=== PATIENT | female | born 1990 | race Caucasian/White ===

== ENCOUNTER 2016-09-16 22:06 | Emergency (ER) | payer OTHER ==
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
--- NOTE | 2016-09-17 00:18 | ED ORDER SUMMARY ---
..... Patient: CHUCK EAGLE OrderSheet [facility] VisitID: [id number] [place] [address] 26y, F Registration Date/Time: 09/16/2016 ORDER SHEET Weight: 45.3 kg (stated) Allergies: No Known Drug Allergy GENERAL ORDERS: Cervical Spine 2 or 3V Urgent (22:09/16/2016 Deja OWENS) (Ack 22:31 Jose) (22:57 JRomanlewis R.N.) Thoracic Spine 3V Urgent (22:09/16/2016 Deja OWENS) (Ack 22:31 Jose) (0:05 RFay) CT Abd/Pel wo Cont Urgent (:09/16/2016 Deja OWENS) (Ack 22:31 Jose) (0:05 RFay) Chest 2V Urgent (:09/16/2016 Deja OWENS) (Ack 22:31 Jose) (0:05 RFay) CBC w Diff Urgent (22:09/16/2016 Deja OWENS) (Ack 22:31 Jose) (Cancelled: Unable to Collect1:36 JRomanelli R.N.) CMP Urgent (22:09/16/2016 Deja OWENS) (Ack 22:31 Jose) (Cancelled: Unable to Collect1:36 JRomanelli R.N.) Amylase Urgent (22:09/16/2016 Deja OWENS) (Ack 22:31 Jose) (Cancelled: Unable to Collect1:36 JRomanelli R.N.) Lipase Urgent (22:09/16/2016 Deja OWENS) (Ack 22:31 Jose) (1:36 JRomanelli R.N.) (Cancelled: Unable to Collect1:36 JRomanelli R.N.) Urine Urgent (22:09/16/2016 Deja OWENS) (Ack 22:31 Jose) (22:57 Alden R.N.) Urine Drug Screen Urgent (22:09/16/2016 Deja OWENS) (Ack 22:31 Jose) (22:57 omanlewis R.N.) UA-Culture if indicated Urgent (22:09/16/2016 Deja OWENS) (Ack 22:31 Jose) (22:57 omanlewis R.N.) PT with INR Urgent (22:09/16/2016 Deja OWENS) (Ack 22:31 Jose) (1:36 JRomanelli R.N.) (Cancelled: Unable to Collect1:36 JRomanelli R.N.) PTT Urgent (22:09/16/2016 Deja OWENS) (Ack 22:31 Jose) (Cancelled: Unable to Collect1:36 JRomanelli R.N.) MEDICATION ORDERS: IV FLUIDS: ORDER SHEET NOTES: [Electronically signed by Christopher Johnston R.N. (01:37 09/17/2016)] [Electronically signed by Jaycob Roberto MD (08:11 09/28/2016)] [Electronically locked/signed by Christopher Johnston R.N. (:37 09/17/2016)]
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
--- NOTE | 2016-09-17 00:18 | ED ORDER SUMMARY ---
..... Patient: CHUCK EAGLE OrderSheet [facility] VisitID: [id number] [place] [address] 26y, F Registration Date/Time: 09/16/2016 ORDER SHEET Weight: 45.3 kg (stated) Allergies: No Known Drug Allergy GENERAL ORDERS: Cervical Spine 2 or 3V Urgent (22:09/16/2016 Deja OWENS) (Ack 22:31 Jose) (22:57 JRomanlewis R.N.) Thoracic Spine 3V Urgent (22:09/16/2016 Deja OWENS) (Ack 22:31 Jose) (0:05 RFay) CT Abd/Pel wo Cont Urgent (:09/16/2016 Deja OWENS) (Ack 22:31 Jose) (0:05 RFay) Chest 2V Urgent (:09/16/2016 Deja OWENS) (Ack 22:31 Jose) (0:05 RFay) CBC w Diff Urgent (22:09/16/2016 Deja OWENS) (Ack 22:31 Jose) (Cancelled: Unable to Collect1:36 JRomanelli R.N.) CMP Urgent (22:09/16/2016 Deja OWENS) (Ack 22:31 Jose) (Cancelled: Unable to Collect1:36 JRomanelli R.N.) Amylase Urgent (22:09/16/2016 Deja OWENS) (Ack 22:31 Jose) (Cancelled: Unable to Collect1:36 JRomanelli R.N.) Lipase Urgent (22:09/16/2016 Deja OWENS) (Ack 22:31 oJse) (1:36 JRomanelli R.N.) (Cancelled: Unable to Collect1:36 JRomanelli R.N.) Urine Urgent (22:09/16/2016 Deja OWENS) (Ack 22:31 Jose) (22:57 Alden R.N.) Urine Drug Screen Urgent (22:09/16/2016 Deja OWENS) (Ack 22:31 Jose) (22:57 omanlewis R.N.) UA-Culture if indicated Urgent (22:09/16/2016 Deja OWENS) (Ack 22:31 Jose) (22:57 omanlewis R.N.) PT with INR Urgent (22:09/16/2016 Deja OWENS) (Ack 22:31 Jose) (1:36 JRomanelli R.N.) (Cancelled: Unable to Collect1:36 JRomanelli R.N.) PTT Urgent (22:09/16/2016 Deja OWENS) (Ack 22:31 Jose) (Cancelled: Unable to Collect1:36 JRomanelli R.N.) MEDICATION ORDERS: IV FLUIDS: ORDER SHEET NOTES: [Electronically signed by Christopher Johnston R.N. (01:37 09/17/2016)] [Electronically signed by Jaycob Roberto MD (08:11 09/28/2016)] [Electronically locked/signed by Christopher Johnston R.N. (:37 09/17/2016)]
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
--- NOTE | 2016-09-28 08:12 | ED MAR SUMMARY ---
..... Medication Administration Record [facility] [address] [place], [place] [id number] Patient: CHUCK EAGLE Visit ID: [id number] 26y, F Weight: 45.3 kg Height/Length: 61 in BMI: 18.9 ALLERGIES: No Known Drug Allergy
--- NOTE | 2016-09-28 08:12 | ED MED RECONCILIATION SUMMARY ---
Patient: CHUCK EAGLE Medication Reconciliation Report [facility] VisitID: [id number] [place] [address] 26y, F Registration Date/Time: 09/16/2016 Weight: 45.3 kg Height/Length: 61 in. BMI: 18.9 ALLERGIES: No Known Drug Allergy The patient's Home Medications are listed below: NONE. The source(s) of the original Home Medication information: patient The following Medications were given to the patient in the Emergency Department: None. The following Medications were prescribed to the patient: Acetaminophen (available over the counter): take according to label instructions. -- Jaycob Roberto MD Septra DS 800 mg / 160 mg: take 1 tablet orally every 12 hours for 7 days. Dispense fourteen (14). No refills. Substitution is permissible. -- Jaycob Roberto MD
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
--- NOTE | 2016-09-28 08:12 | ED MED RECONCILIATION SUMMARY ---
Patient: CHUCK EAGLE Medication Reconciliation Report [facility] VisitID: [id number] [place] [address] 26y, F Registration Date/Time: 09/16/2016 Weight: 45.3 kg Height/Length: 61 in. BMI: 18.9 ALLERGIES: No Known Drug Allergy The patient's Home Medications are listed below: NONE. The source(s) of the original Home Medication information: patient The following Medications were given to the patient in the Emergency Department: None. The following Medications were prescribed to the patient: Acetaminophen (available over the counter): take according to label instructions. -- Jaycob Roberto MD Septra DS 800 mg / 160 mg: take 1 tablet orally every 12 hours for 7 days. Dispense fourteen (14). No refills. Substitution is permissible. -- Jaycob Roberto MD
--- NOTE | 2016-09-28 08:12 | ED MAR SUMMARY ---
..... Medication Administration Record [address] [place] [place], [place] [id number] Patient: CHUCK EAGLE Visit ID: [id number] 26y, F Weight: 45.3 kg Height/Length: 61 in BMI: 18.9 ALLERGIES: No Known Drug Allergy
== END 2016-09-17 00:45 | disposition home or self-care (01) ==
LOC: ED SRH 22:06
DX: S60.511A Abrasion of right hand, initial encounter (principal); S60.512A Abrasion of left hand, initial encounter; S80.211A Abrasion, right knee, initial encounter; S80.212A Abrasion, left knee, initial encounter; S30.1XXA Contusion of abdominal wall, initial encounter; V28.0XXA Motorcycle driver injured in noncollision transport accident in nontraffic accident, initial encounter; Y92.410 Unspecified street and highway as the place of occurrence of the external cause; S80.01XA Contusion of right knee, initial encounter; S80.02XA Contusion of left knee, initial encounter; N30.90 Cystitis, unspecified without hematuria; F19.10 Other psychoactive substance abuse, uncomplicated
CPT/HCPCS: 90004; 90469; 92760; 92761; 92762; 92763; 92764; 92765; 92766; 92767; 93070